=== PATIENT | female | born 1960 | race Caucasian/White ===

== ENCOUNTER 2024-03-27 11:15 | Day surgery (SDC) | payer OTHER ==
[2024-03-27] MEDS: Lactated Ringers 1,000 ML IV SCH (11:26)
[2024-03-27] MEDS ORDERED: Lactated Ringers 1,000 ML IV ONE (11:42)
[2024-03-27] MEDS ORDERED: DIPRIVAN 200 MG/20 ML IV ONE ×2 (13:39→13:51)
[2024-03-27] MEDS ORDERED: Xylocaine-Mpf 2% 5 Ml Vial ONE (13:39)
[2024-03-27] MEDS ORDERED: ROBINUL ONE (13:44)
[2024-03-27 14:23] VITALS: BP 119/70; RESP 16
[2024-03-27 14:34] VITALS: PULSE 50; TEMP 97.6; O2SAT 100
[2024-03-27 15:05] LABS: 027 TOX PROD PRESUMPTIVE NEGATIVE (NEGATIVE); TOXIGENIC C. DIFF ORG NEGATIVE (NEGATIVE)
--- NOTE | 2024-03-28 10:51 | OP ---
SURGERY DATE/TIME: 03/27/2024 [id number] - [id number] PREOPERATIVE DIAGNOSIS: Diarrhea, though it is substantially improved. POSTOPERATIVE DIAGNOSIS: Normal exam. PROCEDURE: Colonoscopic examination to the cecum with stool sent for C difficile, O and P and stool pathogens. SURGEON: Saud Vargas MD ANESTHESIA: General. COMPLICATIONS: None. CONDITION: Stable. DESCRIPTION OF PROCEDURE AND FINDINGS: Patient brought to the endoscopy suite, left lateral decubitus position. Anal digital examination was satisfactory. Tone was satisfactory. She had diarrhea. This had improved with probiotics but it is not totally cleared. Rectum satisfactory. Scope advanced to the sigmoid. No diverticulosis. No diverticulitis descending, transverse, ascending to cecum. Very nice-appearing colon. There was not any abnormal movement. There was just a normal amount of tone and occasional spasm. Mucosa was excellent. No mucosal biopsies were taken. Base of the cecum, ileocecal valve, appendiceal orifice were satisfactory. Ascending, hepatic, transverse, splenic, descending, sigmoid, rectum was normal. Normal exam. We did take stool samples. I would suggest a gluten-free diet as he is still having some diarrhea. Her colon certainly looks normal.
== END 2024-03-27 14:48 | disposition home or self-care (01) ==
LOC: SDC 11:15
PROVIDERS: ATTEND Surgery
DX: R19.7 Diarrhea, unspecified (principal)
CPT/HCPCS: 87045; 87046; 87177; 87209; 87328; 87329; 87427; 87493; 93005; J2704